=== PATIENT | female | born 1995 | race Caucasian/White ===

== ENCOUNTER → 2018-03-09 | Day surgery (SDC) | payer BC ==
[~2018-03-09] VITALS: Ht 165.1 cm; Wt 61.1 kg
[~2018-03-09] MED LIST: ACETAMINOPHEN 1000 MG/100 ML 100 ML IV ONE; ACETAMINOPHEN/HYDROcodone 325 MG/7.5 MG TAB PO PRN; APREPITANT 40 MG CAP ONE; BUPIVACAINE HCL PF 0.5% 30 ML VIAL ONE; BUPIVACAINE/EPINEPHRINE 0.5% PF 10 ML VIAL ONE; CHLORHEXIDINE GLUCONATE 2 % 1 PACK (2 CLOTHS) TOPICAL PRN; CHLORHEXIDINE GLUCONATE 4% SOLN 120 ML BTL TOPICAL SCH; DEXAMETHASONE SOD PHOS 4 MG/ML VIAL IV ONE; DEXAMETHASONE SOD PHOS PF 10 MG/ML VIAL ONE; DO NOT ADM ANY ANTICOAGULANT DRUGS PRN; GENTAMICIN SULFATE 80 MG/2 ML VIAL ONE; HYDR-3580 PO; LACTATED RINGER'S 1000 ML IV PRN; LIDOCAINE HCL 1% PF 5 ML SYRINGE OTHER ONE; METOPROLOL TARTRATE 25 MG TAB PO PRN; MIDAZOLAM HCL 5 MG/5 ML VIAL ONE; MORPHINE SULFATE 4 MG/ML INJ IV PUSH PRN; ONDANSETRON HCL 4 MG/2 ML VIAL IV ONE; PHENYLEPH/NS 1000 MCG/10 ML SYR IV ONE; POVIDONE IODINE 5% (ANTISEPSIS KIT) 4 APPLICATIONS EACH NARE PRN; PROPOFOL 200 MG/20 ML AMP IV ONE; SODIUM CHLOR 0.9% 250 ML INJ 0 ML ONE; SODIUM CHLORID 0.9% 500 ML IV PRN; VANCOMYCIN HCL 1000 MG VIAL ONE; VITATAB11 PO; ceFAZolin INJ 1,000 MG VIAL ONE; ePHEDrine/NS 25 MG/5 ML SYRINGE IV ONE
--- NOTE | 2018-03-09 08:32 | PD.OP ---
cc: Matias Adan MD Operative Report Date of Surgery: March 09, 2018 Preoperative Diagnosis: Displaced left distal radius fracture Postoperative Diagnosis: Procedure: Open reduction internal fixation left distal radius Anesthesia: General Surgeon: Matias Adan Fisheries Director(s): REED Bustillos PA-C The surgical procedure was assisted by my physician pastry assistant. My P.A. presence was necessary throughout this case for the manipulation and positioning of the surgical extremity. My P.A. was assisting me throughout the duration of this procedure. The skill set of a physician pastry assistant was medically necessary to complete this procedure. During the surgical case the surgical device sales representative was working at the back table and the physician pastry assistant was directly assisting me. Operation and Findings: Implants used: ITS Plan of activity: Nonweightbearing, removable wrist splint in 2 weeks Details of procedure: Patient was seen and evaluated preoperatively and found to have a displaced distal radius fracture. Informed consent was obtained after detailed discussion of risk and benefits including bleeding, infection, injury to arteries, nerves, and blood vessels, weakness and numbness of hand, and tendon rupture. Informed consent was obtained. Patient received IV antibiotics prior to incision. Timeout procedure was performed. Operative extremity was prepped with alcohol followed by Hibiclens and draped usual sterile fashion. A standard volar approach to the distal radius was utilized. A 3 inch incision was made over the FCR tendon. Tendon sheath was opened. Pronator quadratus was elevated up. The fracture site was now visualized. The fracture did have intra-articular extension. Traction was applied. The articular surface was reduced. Fracture fragments were manipulated to achieve excellent reduction. K wires were used to hold provisional fixation. Fluoroscopy confirmed appropriate alignment of fracture. A variable angle distal radius plate was selected. Plate was provisionally fixed to bone with K wires. 2.7 and 2.4 cortical screws were used to compress plate to bone. Fluoroscopy confirmed appropriate alignment of fracture with well-placed hardware. Multiple 2.4 locking screws were now placed distally. Screws were predrilled and measured for appropriate length. 2 additional screws were placed into the shaft. K wires were removed. Final fluoroscopy revealed excellent of fracture with well- placed hardware. The wound was thoroughly irrigated with sterile saline. Subcutaneous tissue was closed with 3-0 Vicryl and skin was closed with 3-0 nylon. Sterile dressings were applied with Xeroform, 4 x 4, soft roll, and a well padded volar splint. Patient was awakened and transferred to recovery room in stable condition Matias Adan MD March 09, 2018 08:32
[2018-03-09 10:30] VITALS: BP 118/78; PULSE 71; RESP 18; TEMP 98.3; O2SAT 98
--- NOTE | 2018-03-09 12:22 | RADRPT ---
EXAM DATE: 03/09/2018 8:44 AM EDT AGE/SEX: 23 years / Female INDICATIONS: ORIF left wrist fracture. CLINICAL DATA: This is the patient's initial encounter. Patient reports that signs and symptoms have been present for 1 day and indicates a pain score of Nonresponsive. MEDICAL/SURGICAL HISTORY: . Unobtainable. . Unobtainable. COMPARISON: No prior exams available for comparison. FINDINGS: Postoperative plate and screw fixation of the distal radius with near-anatomic alignment. Ulnar stylo id fracture. No dislocation. CONCLUSION: Fixation distal radius. Electronically signed by: Amrik Figueredo MD 03/09/2018 12:21 PM EDT
== END | disposition home or self-care (01) ==
LOC: HSDC 05:43
PROVIDERS: ATTEND Orthopaedic Surgery Orthopaedic Trauma
DX: S52.502A Unspecified fracture of the lower end of left radius, initial encounter for closed fracture (principal)
CPT/HCPCS: 01830; 01991; 25608; 64450; 73100; 76000; C1713; J0131; J0690; J1100; J1580; J2250; J2370; J2405; J3010; J7120; J8501; J3370; J7050